=== PATIENT | female | born 1950 | race Hispanic/Latino ===

== ENCOUNTER → 2018-05-07 | Outpatient (CLI) | payer OTHER | END | disposition home or self-care (01) | LOC: RAH 13:32 | PROVIDERS: ATTEND Internal Medicine | DX: Z13.6 Encounter for screening for cardiovascular disorders (principal) | CPT/HCPCS: 75571 ==

== ENCOUNTER → 2020-01-14 | Outpatient (CLI) | payer OTHER ==
[~2020-01-14] MED LIST: IOHEXOL 350 MG/ML 100ML INFUS..BTL IV ONE
== END | disposition home or self-care (01) ==
LOC: RAH 07:35
PROVIDERS: ATTEND Internal Medicine Gastroenterology
DX: K31.89 Other diseases of stomach and duodenum (principal); R93.3 Abnormal findings on diagnostic imaging of other parts of digestive tract
CPT/HCPCS: 74178; Q9967

== ENCOUNTER → 2021-07-04 | Outpatient (CLI) | payer OTHER | END | disposition home or self-care (01) | LOC: OIH 13:16 | PROVIDERS: ATTEND Internal Medicine | DX: Z13.6 Encounter for screening for cardiovascular disorders (principal) | CPT/HCPCS: 75571 ==

== ENCOUNTER → 2024-12-16 | Outpatient (CLI) | payer OTHER ==
--- NOTE | 2024-12-16 13:11 | HMCIMG ---
Exam Type: CHEST 1VW Clinical Information: PRE-OP Comparison: None Findings: The lungs are clear of infiltrates. The heart is normal in size. The bony and soft tissue structures of the chest are unremarkable. Impression: Clear lungs.
== END | disposition home or self-care (01) ==
LOC: RAH 11:28
PROVIDERS: ATTEND Internal Medicine
DX: Z01.811 Encounter for preprocedural respiratory examination (principal); I10 Essential (primary) hypertension
CPT/HCPCS: 71045

== ENCOUNTER → 2024-12-24 | Outpatient (CLI) | payer OTHER ==
--- NOTE | 2024-12-24 13:32 | HMCSR ---
APPROVED REPORT EXAM: Two-dimensional and M-mode echocardiogram with Doppler and color Doppler. INDICATION ICD: I10 Essential hypertension 2D Dimensions IVSd0.9 (0.7-1.1cm)LVEF(%)64.4 (>50%)LVED Vol(simp.)62.2 mL LVDd4.3 (3.8-5.6cm)FS(%)35 %LVES Vol(simp.)21.1 mL PWd0.9 (0.7-1.1cm)LA (2D)3.5 (1.6-4.0cm)LVEF(%, simp.)66 % IVSs1.1 cmAo Root(2D)3.1 (2.0-3.7cm)LA ESV INDEX (4CH)16.80 mL/m2 LVDs2.8 (2.5-4.0cm)LVOT diam2.1 (1.8-2.4cm)LA ESV INDEX (2CH)15.60 mL/m2 PWs1.3 cmLA ESV INDEX (BP)17.40 mL/m2 M-Mode Dimensions EPSS0.9 cm LA (MM)3.6 (1.6-4.0cm) Ao Root(MM)2.8 (2.0-3.7cm) Aortic Valve AoV VTI0.3 mAo Mean GR3.0 mmHgLVOT VTI0.19 m BARBRA (VMAX)2.5 cm2AVA (VTI) 2.5 cm2 Mitral Valve MV E Vmax88.3 cm/sDECEL Mpeb554 ms MV A Vmax94.6 cm/sP 1/2 T66 ms E/A ratio0.9MVA (PHT)3.3 cm2 TDI E/E' Isykjp49.9E/E' Rwwokfq74.2 Medial E' Peak V3.70 cm/sLateral E' Peak V5.80 cm/s Pulmonary Valve PV Vmax0.8 m/sPI End [place]. Zaid 71.9 cm/s PV Peak GR2.6 mmHg Left Ventricle The left ventricle is normal size. There is normal left ventricular wall thickness. LVEF is 60-65%. I ndeterminate diastolic dysfunction. Right Ventricle The right ventricle is normal size. The right ventricular systolic function is normal. Atria The left atrium size is normal. The right atrium size is normal. Aortic Valve The aortic valve is normal in structure. No aortic regurgitation is present. There is no aortic valvu lar stenosis. Mitral Valve The mitral valve is normal in structure. There is no mitral valve regurgitation noted. There is no mi tral valve stenosis. Tricuspid Valve The tricuspid valve is normal in structure. There is trace of tricuspid valve regurgitation noted. Pulmonic Valve The pulmonary valve is normal in structure. There is trivial pulmonic valvular regurgitation. Great Vessels The aortic root is normal in size. The IVC is normal in size and collapses >50% with inspiration. Pericardium There is no pericardial effusion. The pericardium appears normal. Other Information Quality : AdequateRhythm : NSR Conclusion LVEF is 60-65%. Indeterminate diastolic dysfunction. No valvular abnormalities..
== END | disposition home or self-care (01) ==
LOC: RAH 08:42
PROVIDERS: ATTEND Internal Medicine
DX: I37.1 Nonrheumatic pulmonary valve insufficiency (principal); I10 Essential (primary) hypertension
CPT/HCPCS: 93306